=== PATIENT | female | born 1945 | race Caucasian/White ===

== ENCOUNTER → 2018-03-30 | Outpatient (CLI) | payer MEDICARE, BC ==
[~2018-03-30] MED LIST: NEPHRO-VITE1 TA1 PO; VITAMIN A PO; VITAMIN C1 TAB PO; VITAMIN E200 I1 PO
== END ==
LOC: COL.RAD 13:06
DX: M71.21 Synovial cyst of popliteal space [Baker], right knee (principal)

== ENCOUNTER → 2020-01-04 | Outpatient (CLI) | payer MEDICARE, BC | LOC: COL.RAD 10:30 | DX: K44.9 Diaphragmatic hernia without obstruction or gangrene (principal) | CPT/HCPCS: Q9967 ==

== ENCOUNTER → 2021-01-05 | Outpatient (CLI) | payer MEDICARE, BC | LOC: COL.VAS 12:29 | DX: G45.3 Amaurosis fugax (principal) ==